=== PATIENT | female | born 1970 | race Asian ===

== ENCOUNTER 2019-05-05 07:51 | Emergency (ER) | payer OTHER ==
[~2019-05-05] VITALS: Ht 152.4 cm; Wt 50.3 kg
[2019-05-05 07:58] VITALS: Ht 152.4 cm; Wt 50.3 kg
[2019-05-05 08:44] LABS: BASOPHIL % 0 % (0-2); PLATELET COUNT 296 x10^3mcL (130-400); RED CELL DISTRIBUTION WIDTH 14.1 % (11.5-14.5)
[2019-05-05 09:01] LABS: CALCIUM 8.8 mg/dL (8.5-10.1); CARBON DIOXIDE 28.5 mmol/L (21-32); CHLORIDE SERUM 102 mmol/L (98-107); CREATININE SERUM 0.7 mg/dL (0.6-1.0); GFR1 > 60 mL/min; GLUCOSE SERUM 96 mg/dL (74-106); POTASSIUM SERUM 3.6 mmol/L (3.5-5.1); SODIUM SERUM 138 mmol/L (136-145)
[2019-05-05 09:06] LABS: ALBUMIN 3.5 g/dL (3.4-5.0); ALKALINE PHOSPHATASE 59 U/L (46-116); ALT/SGPT 23 U/L (14-59); AST/SGOT 14 U/L (15-37); BILIRUBIN TOTAL 0.27 mg/dL (0.20-1.00); TOTAL PROTEIN, SERUM 7.8 g/dL (6.4-8.2)
[2019-05-05 12:07] VITALS: BP 121/72
== END 2019-05-05 12:07 | disposition home or self-care (01) ==
LOC: ED 07:51
DX: R20.2 Paresthesia of skin (principal); R06.00 Dyspnea, unspecified
CPT/HCPCS: 36415; Q0092